=== PATIENT | female | born 1980 | race Caucasian/White ===

== ENCOUNTER 2020-05-15 12:42 | Emergency (ER) | payer MEDICARE, MEDICAID, SELFPAY ==
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
[2020-05-15 14:36] VITALS: BP 137/89; PULSE 93; RESP 18; TEMP 36.4; O2SAT 94; BMI 40.3
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
== END 2020-05-15 16:50 | disposition home or self-care (01) ==
PROVIDERS: Emergency Provider Emergency Medicine; PCP Nurse Practitioner Family
DX: S39.012A Strain of muscle, fascia and tendon of lower back, initial encounter (principal); S63.501A Unspecified sprain of right wrist, initial encounter; S66.911A Strain of unspecified muscle, fascia and tendon at wrist and hand level, right hand, initial encounter; V73.6XXA Passenger on bus injured in collision with car, pick-up truck or van in traffic accident, initial encounter; Y93.89 Activity, other specified; Y92.414 Local residential or business street as the place of occurrence of the external cause; Y99.9 Unspecified external cause status
CPT/HCPCS: 72100; 73110; 73130; 99283

== ENCOUNTER 2020-11-13 21:13 | Emergency (ER) | payer MEDICARE, MEDICAID, SELFPAY ==
--- NOTE | ~2020-11-13 | CT_ITS ---
EXAMINATION: CT HEAD WITHOUT CONTRAST CT CERVICAL SPINE WITHOUT CONTRAST CLINICAL INFORMATION: Fall. COMPARISON: None. TECHNIQUE: Imaging was performed from the skull base to vertex without intravenous administration of contrast. In addition, helical noncontrast CT imaging was acquired through the cervical spine and source images were reviewed along with axial reconstructions and sagittal and coronal MPRs. [This CT examination was performed using dose optimization techniques as appropriate, variously including the following: *Automated exposure control *Adjustment of mA and/or kV according to patient size (this includes techniques or standardized protocols for targeted exams where dose is matched to indication/reason for exam; i.e. extremities or head) *Use of iterative reconstruction technique] DLP: 1763 mGy-cm FINDINGS: HEAD: Calcified extra-axial lesion in the left frontal region consistent with a meningioma measuring 1.3 cm. No intracranial mass, hemorrhage, or midline shift is visualized. The ventricles and sulci are proportional. No extra-axial collections are identified. The paranasal sinuses and mastoid air cells are well aerated. CERVICAL SPINE: There is no evidence of acute cervical spine fracture. Vertebral bodies remain normal in height. Cervical vertebrae have normal alignment. Cervical disc heights are normal. The facet joints are normal. No pre- or paravertebral soft tissue abnormality is identified. Limited assessment of the lung apices is unremarkable. CT/CT cervical spine wo con IMPRESSION: 1. No acute intracranial pathology. 2. No CT evidence of acute cervical spine fracture or traumatic subluxation
--- NOTE | ~2020-11-13 | CT_ITS ---
EXAMINATION: CT HEAD WITHOUT CONTRAST CT CERVICAL SPINE WITHOUT CONTRAST CLINICAL INFORMATION: Fall. COMPARISON: None. TECHNIQUE: Imaging was performed from the skull base to vertex without intravenous administration of contrast. In addition, helical noncontrast CT imaging was acquired through the cervical spine and source images were reviewed along with axial reconstructions and sagittal and coronal MPRs. [This CT examination was performed using dose optimization techniques as appropriate, variously including the following: *Automated exposure control *Adjustment of mA and/or kV according to patient size (this includes techniques or standardized protocols for targeted exams where dose is matched to indication/reason for exam; i.e. extremities or head) *Use of iterative reconstruction technique] DLP: 1763 mGy-cm FINDINGS: HEAD: Calcified extra-axial lesion in the left frontal region consistent with a meningioma measuring 1.3 cm. No intracranial mass, hemorrhage, or midline shift is visualized. The ventricles and sulci are proportional. No extra-axial collections are identified. The paranasal sinuses and mastoid air cells are well aerated. CERVICAL SPINE: There is no evidence of acute cervical spine fracture. Vertebral bodies remain normal in height. Cervical vertebrae have normal alignment. Cervical disc heights are normal. The facet joints are normal. No pre- or paravertebral soft tissue abnormality is identified. Limited assessment of the lung apices is unremarkable. CT/CT head/brain wo con IMPRESSION: 1. No acute intracranial pathology. 2. No CT evidence of acute cervical spine fracture or traumatic subluxation
[2020-11-13 21:23] VITALS: BP 116/62; PULSE 103; RESP 16; TEMP 36.6; O2SAT 94; BMI 41.9
--- NOTE | 2020-11-13 21:52 | ED_ITS ---
HPI - Fall General Chief Complaint: Fall Stated Complaint: ETOH Time Seen by Provider: 11/13/20 21:34 Source: patient Mode of arrival: EMS Limitations: no limitations History of Present Illness HPI Narrative: Patient intoxicated fell after drinking hitting her forehead to the ground came with superficial abrasion to the forehead no seizures no loss of consciousness no other injuries not on any blood thinner Related Data Previous Rx's Medication Instructions Recorded cyclobenzaprine 10 mg tablet 10 mg PO TID PRN #10 tab 05/15/20 lidocaine 5 % topical patch 1 patch TOPICAL DAILY #15 ea 05/15/20 (Lidoderm) naproxen 500 mg tablet 500 mg PO BID PRN #10 tab 05/15/20 oxycodone-acetaminophen 5 mg-325 1 tab PO Q6H PRN #10 tab 05/15/20 mg tablet (Percocet) Allergies Allergy/AdvReac Type Severity Reaction Status Date / Time amoxicillin Allergy Unknown Unknown Verified 05/15/20 14:36 penicillin V Allergy Unknown Hives Verified 05/15/20 14:36 Penicillins [PENICILLINS] Allergy Unknown UNKNOWN Verified 05/15/20 14:36 mold Allergy Unknown Hives Uncoded 05/15/20 14:36 Review of Systems Review of Systems: Yes all other systems are reviewed and are negative [facility] Past Medical History Medical History HTN (hypertension) Social History Social History Advance Directives: No Advance Directives Information Provided: Yes Patient : No Physical Exam Vital Signs: Vital Signs: Last Vital Signs Temp 98.4 F 11/14/20 02:19 Pulse 91 11/14/20 02:19 Resp 16 11/14/20 02:19 BP 130/80 11/14/20 02:19 Pulse Ox 94 11/14/20 02:19 Body Mass Index 41.9 Const: General: comfortable and no acute distress Orientation/consciousness: patient oriented x3 HENMT: Head: Yes normocephalic Head images: 1. Superficial abrasion with slight swelling dried nasal blood 2. Superficial abrasion Ears: hearing grossly normal bilaterally and TM's normal bilaterally Face and sinus: Yes sinuses nontender Mouth: Normal oral and palatal mucosa present Teeth and gingiva: dentition normal Eyes: General: appearance normal, both eyes and all related structures Neck: Neck: Yes full ROM, Yes trachea midline and No tender Chest: Chest palpation & inspection: normal inspection of the chest and normal palpation of entire chest wall Resp: Effort & Inspection: normal respiratory effort Auscultation: clear to auscultation bilaterally Cardio: Palpation: normal PMI Rate: regular rate Rhythm: regular rhythm Heart sounds: S1 normal heart sound present and S2 normal heart sound present GI: Inspection: Yes normal to inspection Palpation (GI): Soft to palpation and nontender Auscultation: normal bowel sounds Back/Spine/Pelvis: Cervical Spine: normal cervical lordosis and cervical ROM normal Thoracic/Lumbar Spine: No thoracic spinal tenderness and No lumbar spinal tenderness Neuro: General: patient oriented x3, no focal motor deficits and CN's II-XI intact bilaterally MDM - Fall MDM Narrative Medical decision making narrative: Patient status post mechanical fall intoxicated head CT and C-spine CT is negative a superficial abrasion to the f vero will discharge patient home with sober ride if available Discharge Plan Discharge Clinical Impression: Alcohol abuse Head injury Qualifiers: Encounter type: initial encounter Qualified Code(s): S09.90XA - Unspecified injury of head, initial encounter Patient Disposition: Home, Self-Care Instructions: Alcohol Intoxication (ED), Fall Prevention (ED) Additional Instructions: Stop drinking alcohol Local care of abrasions as advised Prescriptions: No Action cyclobenzaprine 10 mg tablet 10 mg PO TID PRN (Reason: muscle spasm) Qty: 10 RF: 0 oxycodone-acetaminophen [Percocet] 5-325 mg tablet 1 tab PO Q6H PRN (Reason: pain) Qty: 10 RF: 0 lidocaine [Lidoderm] 5 % adhesive patch,medicated 1 patch topical DAILY Qty: 15 RF: 0 naproxen 500 mg tablet 500 mg PO BID PRN (Reason: pain) Qty: 10 RF: 0 Interventions: ED Discharge Assessment Last Done: 11/14/20 02:20 Discharge Date/Time: 11/14/20 02:21
[2020-11-14 02:19] VITALS: BP 130/80; PULSE 91; RESP 16; TEMP 36.9; O2SAT 94
== END 2020-11-14 02:21 | disposition home or self-care (01) ==
PROVIDERS: Emergency Provider Internal Medicine; PCP Nurse Practitioner Family
DX: S00.81XA Abrasion of other part of head, initial encounter (principal); G44.309 Post-traumatic headache, unspecified, not intractable; M54.2 Cervicalgia; F10.129 Alcohol abuse with intoxication, unspecified; W01.0XXA Fall on same level from slipping, tripping and stumbling without subsequent striking against object, initial encounter; Y93.9 Activity, unspecified; Y92.89 Other specified places as the place of occurrence of the external cause; Y99.9 Unspecified external cause status; Z79.899 Other long term (current) drug therapy
CPT/HCPCS: 70450; 72125; 99284

== ENCOUNTER 2021-09-18 12:54 | Emergency (ER) | payer MEDICARE, MEDICAID, SELFPAY ==
[2021-09-18 13:28] VITALS: BP 159/98; PULSE 83; RESP 18; TEMP 37.1; O2SAT 98; BMI 33.9
--- NOTE | 2021-09-18 15:26 | ED.BACK ---
HPI - Back Pain/Injury General Chief Complaint: Back Pain/Injury Stated Complaint: back thrown out Time Seen by Provider: 09/18/21 15:11 Source: patient Mode of arrival: ambulatory History of Present Illness HPI Narrative: 40-year-old female with a past medical history of hypertension, chronic back pain, presenting to the ED complaining of acute on chronic left-sided low back pain s/p getting up from sitting last night. Admits to taking Motrin without relief. Denies direct injury, trauma, fall or heavy lifting. Denies radiation of pain, numbness, tingling, weakness, urinary incontinence/retention, fever MD elicited complaint: back pain Related Data Previous Rx's Medication Instructions Recorded cyclobenzaprine 10 mg tablet 10 mg PO TID PRN muscle spasm #10 05/15/20 tabs lidocaine 5 % topical patch 1 patch topical DAILY pain #15 ea 05/15/20 (Lidoderm) naproxen 500 mg tablet 500 mg PO BID PRN pain #10 tabs 05/15/20 oxycodone-acetaminophen 5 mg-325 1 tab PO Q6H PRN pain #10 tabs 05/15/20 mg tablet (Percocet) acetaminophen 500 mg tablet 500 mg PO Q6H PRN fever or pain 09/18/21 (Tylenol Extra Strength) #14 tabs cyclobenzaprine 5 mg tablet 5 mg PO Q8H PRN pain (scale score 09/18/21 7-10) 5 days #14 tabs lidocaine 5 % topical patch 1 patch topical DAILY PRN pain #30 09/18/21 (Lidoderm) ea naproxen 500 mg tablet 500 mg PO BID PRN pain 10 days #20 09/18/21 tabs Allergies Allergy/AdvReac Type Severity Reaction Status Date / Time amoxicillin Allergy Unknown Unknown Verified 05/15/20 14:36 penicillin V Allergy Unknown Hives Verified 05/15/20 14:36 Penicillins [PENICILLINS] Allergy Unknown UNKNOWN Verified 05/15/20 14:36 mold Allergy Unknown Hives Uncoded 05/15/20 14:36 Review of Systems Review of Systems: Constitutional: No Fever, No Chills ENT/Mouth: No Ear Pain, No Nasal Congestion, No sore throat, No Rhinorrhea, No Swallowing Difficulty Cardiovascular: No Chest Pain, No SOB Respiratory: No Cough, No Wheezing Gastrointestinal: No Nausea, No Vomiting, No Diarrhea, No Constipation, No Abdominal pain Genitourinary: No Dysuria, No Urinary Frequency, No Hematuria, No Urinary Incontinence/retention, No Flank Pain Musculoskeletal: + joint pain, No Myalgias, No Joint Swelling Skin: No Skin Lesions, No rash Neuro: No Weakness, No Numbness, No Paresthesias Yes all other systems are reviewed and are negative [facility] Past Medical History Attestation statement: The following information was validated with the patient. Medical History HTN (hypertension) Social History Social History Advance Directives: No Advance Directives Information Provided: No Physical Exam Vital Signs: Vital Signs: Last Vital Signs Temp 98.8 F 09/18/21 13:28 Pulse 83 09/18/21 13:28 Resp 18 09/18/21 13:28 BP 159/98 H 09/18/21 13:28 Pulse Ox 98 09/18/21 13:28 O2 Del Method 09/18/21 13:28 BMI result Body Mass Index 33.9 Const: General: cooperative, healthy appearing and no acute distress Orientation/consciousness: patient oriented x3 Limitations: no limitations HEENT: Head: Yes normal to inspection and Yes atraumatic Ears: hearing grossly normal bilaterally General nose exam: Normal external nose present Face and sinus: Yes normal facial exam Eyes: General: appearance normal, both eyes and all related structures EOM: EOMs intact bilaterally Neck: Neck: Yes normal visual inspection and Yes no meningeal signs Resp: Effort & Inspection: normal respiratory effort and no respiratory distress Cardio: Rate: regular rate Heart sounds: S1 normal heart sound present and S2 normal heart sound present : General: Yes no CVA tenderness Back/Spine/Pelvis: Other: No midline thoracic/lumbar spinous tenderness/step-off or deformity. +left sided lower lumbar MSK ttp Back: no CVA tenderness Skin: Rashes: no rashes Wounds: no wounds Neuro: Other: Strength intact throughout. No saddle anesthesia. Sensation intact to light touch. Neurovascular intact distally General: patient oriented x3, tone normal and no meningeal signs Gait exam (Neuro): Normal gait present Extrem: General: Yes normal to inspection MDM - Back Pain/Injury MDM Narrative Medical decision making narrative: 40-year-old female with a past medical history of hypertension, chronic back pain, presenting to the ED complaining of acute on chronic left-sided low back pain s/p getting up from sitting last night. On exam vital signs stable, NAD, no midline spinous tenderness throughout, no red flag symptoms. Ambulating with steady gait. No saddle anesthesia. Concern for MSK pain/strain vs muscle spasming. Low concern for cauda equina, cord compression, epidural abscess or renal stone/pyelo Plan: Pain management Differential Diagnosis Differential diagnosis: Likely lumbar radiculopathy, strain of lumbar region and thoracic back pain Medical Records Attestation: I reviewed the patient's medical records. Lab Data Attestation: I reviewed the patient's lab results. Discharge Plan Discharge Clinical Impression: Strain of lumbar region Patient Disposition: Home, Self-Care Instructions: Acute Low Back Pain (ED) Additional Instructions: Your pain is likely musculoskeletal Flexeril is a muscle relaxer, take at night as it makes you drowsy, do not drive, drink alcohol, or operate machinery while taking it Naproxen as an anti-inflammatory / pain medication, take with food Lidoderm patches are numbing patches, apply to painful area In addition take Tylenol at home If symptoms persist or worsen, pain becomes unbearable, you developed urinary retention or incontinence, or weakness return to the ED Prescriptions: New acetaminophen [Tylenol Extra Strength] 500 mg tablet 500 mg PO Q6H PRN (Reason: fever or pain) Qty: 14 0RF lidocaine [Lidoderm] 5 % adhesive patch,medicated 1 patch topical DAILY MDD remove after 12 hours PRN (Reason: pain) Qty: 30 0RF Rx Instructions: leave on most painful area for up to 12 hrs naproxen 500 mg tablet 500 mg PO BID PRN (Reason: pain) 10 Days Qty: 20 0RF cyclobenzaprine 5 mg tablet 5 mg PO Q8H PRN (Reason: pain (scale score 7-10)) 5 Days Qty: 14 0RF No Action cyclobenzaprine 10 mg tablet 10 mg PO TID PRN (Reason: muscle spasm) Qty: 10 0RF oxycodone-acetaminophen [Percocet] 5-325 mg tablet 1 tab PO Q6H PRN (Reason: pain) Qty: 10 0RF lidocaine [Lidoderm] 5 % adhesive patch,medicated 1 patch topical DAILY Qty: 15 0RF Rx Instructions: leave on most painful area for up to 12 hrs. May be substituted naproxen 500 mg tablet 500 mg PO BID PRN (Reason: pain) Qty: 10 0RF Referrals: Judie Matos NP [Primary Care Provider] -
[2021-09-18] MEDS: Cyclobenzaprine HCl 10 MG TABLET PO (15:44)
[2021-09-18] MEDS: Lidocaine 4 % Patch ADH..PATCH 1 PATCH TRANSDERMA (15:44)
[2021-09-18] MEDS: Ketorolac Tromethamine 30 MG/ML VIAL IM (15:45)
== END 2021-09-18 15:57 | disposition home or self-care (01) ==
PROVIDERS: Emergency Provider Emergency Medicine; PCP Nurse Practitioner Family
DX: S39.012A Strain of muscle, fascia and tendon of lower back, initial encounter (principal); X58.XXXA Exposure to other specified factors, initial encounter; Y93.9 Activity, unspecified; Y92.9 Unspecified place or not applicable; Y99.9 Unspecified external cause status
CPT/HCPCS: 96372; 99283; 99284; J1885

== ENCOUNTER 2024-01-24 05:00 | Emergency (ER) | payer MEDICARE, MEDICAID, SELFPAY ==
--- NOTE | ~2024-01-24 | XR_ITS ---
EXAMINATION: XR CHEST CLINICAL INFORMATION: Chest pain. COMPARISON: None available. TECHNIQUE: Frontal view of the chest was obtained. FINDINGS: No significant abnormality is noted involving the heart, lungs, mediastinum, bony thorax or soft tissues. XR/XR chest 1V IMPRESSION: Unremarkable examination. Electronically signed by: Suleman Suarez MD 01/24/2024 05:42 AM EDT RP
[2024-01-24 05:11] VITALS: BP 148/85; PULSE 74; RESP 16; TEMP 36.7; O2SAT 96; BMI 26.8
[2024-01-24 05:32] VITALS: O2SAT 97
--- NOTE | 2024-01-24 05:35 | PC.NURSE ---
Pt reporting she has extensive lung history issues as a child. Pt is currently speaking in full sentences. RA O2 97%. Pt given urine cup at this time, call de anda within reach.
--- NOTE | 2024-01-24 05:41 | MHC.EDTECH ---
This tech assumed care of patient at this time,rounded and introduced self to patient,labs,urine,and sars/flu/rsv obtained and sent to lab.call neetu rocha reach
[2024-01-24 06:02] LABS: MANUAL DIFF FLAG NO
[2024-01-24 06:03] LABS: Basophils Absolute Auto 0.1 X10*3/uL (0.0-0.2); Basophils Percent Auto 0.6 % (0-2); Eosinophils Absolute Auto 0.2 X10*3/uL (0.0-0.4); Eosinophils Percent Auto 1.7 % (0-4); Hematocrit 41.3 % (37.0-47.0); Hemoglobin 13.5 g/dl (12.0-16.0); Imm Gran Abs Auto 0.04 X10*3/uL (0.00-0.03); Imm Gran Pct Auto 0.4 % (0.0-0.4); Lymphocytes Absolute Auto 2.6 X10*3/uL (1.2-4.9); Lymphocytes Percent Auto 25.7 % (20-40); Mean Corpuscular HGB Conc 32.7 g/dl (31.0-35.0); Mean Corpuscular Hemoglobin 29.7 pg (27.0-33.0); Mean Corpuscular Volume 90.8 fL (80.0-98.0); Mean Platelet Volume 9.5 fL (9.4-12.3); Monocytes Absolute Auto 0.8 X10*3/uL (0.1-1.2); Monocytes Percent Auto 7.6 % (2-11); Neutrophils Absolute Auto 6.5 x10*3/uL (2.0-8.3); Platelet Count 195 X10*3/uL (160-400); Red Blood Count 4.55 X10*6/uL (4.20-5.50); Red Cell Distribution Width 14.4 % (11.0-16.0); White Blood Count 10.1 X10*3/uL (4.8-10.8)
[2024-01-24 06:06] LABS: Appearance Urine Clear; Color Urine Yellow; Glucose Urine UA Negative (Negative); Leukocyte Esterase Urine Moderate (2+) (Negative); Nitrite Urine Negative (Negative); Specific Gravity - Urine 1.015 (1.005-1.025); UMIC TRIGGER UACC YES; Urine Blood Negative (Negative); Urine Ketones Negative (Negative); Urine Protein Negative (Neg-Trace)
[2024-01-24 06:12] LABS: Bacteria Urine 1+ (None Seen); Hyaline Casts Urine 0-2 /LPF (0-2); RBC Urine 0-2 /HPF (0-2); UACC Culture Trigger YES
[2024-01-24 06:14] LABS: Anion Gap 12 (12-20); Blood Urea Nitrogen 15 mg/dL (9-16); Calcium 8.4 mg/dL (8.4-10.2); Carbon Dioxide 24 mmol/L (22-29); Chloride 107 mmol/L (96-108); Creatinine Clr Calc Pharmacy 109.9; Estimated Glomerular Filt Rate > 60; Glucose Random 85 mg/dL (60-115); Potassium 3.7 mmol/L (3.3-5.1); Sodium 139 mmol/L (135-145)
[2024-01-24 06:40] LABS: Influenza A PCR NEGATIVE (Negative); Influenza B PCR NEGATIVE (Negative); Resp Syncy Virus RNA Qual PCR NEGATIVE (Negative); SARS COV2 PCR INHOUSE NEGATIVE (Negative)
--- NOTE | 2024-01-24 07:00 | ED.URI ---
HPI - URI/Sore Throat General Chief Complaint: Upper Respiratory Symptoms Stated Complaint: Lung pain Time Seen by Provider: 01/24/24 05:40 Source: patient Mode of arrival: ambulatory Limitations: no limitations History of Present Illness ED Provider: Dr. Becker HPI Narrative: Patient with a week of chest pain and cough, he is still smoking he has a history of COPD. He denies fever. MD elicited complaint: cough Related Data Previous Rx's ?Medication ?Instructions ?Recorded cyclobenzaprine 10 mg tablet 10 mg PO TID PRN muscle spasm #10 05/15/20 tabs lidocaine 5 % topical patch 1 patch topical DAILY pain #15 ea 05/15/20 (Lidoderm) naproxen 500 mg tablet 500 mg PO BID PRN pain #10 tabs 05/15/20 oxycodone-acetaminophen 5 mg-325 1 tab PO Q6H PRN pain #10 tabs 05/15/20 mg tablet (Percocet) acetaminophen 500 mg tablet 500 mg PO Q6H PRN fever or pain 09/18/21 (Tylenol Extra Strength) #14 tabs cyclobenzaprine 5 mg tablet 5 mg PO Q8H PRN pain (scale score 09/18/21 7-10) 5 days #14 tabs lidocaine 5 % topical patch 1 patch topical DAILY PRN pain #30 09/18/21 (Lidoderm) ea naproxen 500 mg tablet 500 mg PO BID PRN pain 10 days #20 09/18/21 tabs oozekxwbvysmg-QN-ifzldnydyem 5 10 ml PO Q4H PRN cough #473 mL 01/24/24 mg-10 mg-100 mg/5 mL oral liquid Allergies Allergy/AdvReac Type Severity Reaction Status Date / Time amoxicillin Allergy Unknown Unknown Verified 01/24/24 05:14 penicillin V Allergy Unknown Hives Verified 01/24/24 05:14 Penicillins [PENICILLINS] Allergy Unknown UNKNOWN Verified 01/24/24 05:14 mold Allergy Unknown Hives Uncoded 01/24/24 05:14 Review of Systems Review of Systems: Yes all other systems are reviewed and are negative Neurologic: Denies Sensory deficit (Neuro) [facility] Past Medical History Medical History HTN (hypertension) Social History Social History Alcohol intake: unknown Smoked in Last 30 Days: Yes Use of substances other than those prescribed or required for medical reasons: Yes Substance Use Type: Marijuana Substance Use Frequency: Chronic Longstanding Advance Directives: No Advance Directives Information Provided: No Do you have a plan to hurt others: No Plan Physical Exam Vital Signs: Vital Signs: Last Vital Signs Temp 98.1 F 01/24/24 05:11 Pulse 74 01/24/24 05:11 Resp 16 01/24/24 05:11 BP 148/85 H 01/24/24 05:11 Pulse Ox 97 01/24/24 05:32 O2 Del Method Room Air 01/24/24 05:32 BMI result Body Mass Index 26.8 Const: General: healthy appearing Nutritional Appearance: average body habitus Orientation/consciousness: oriented to person and patient oriented x3 Limitations: no limitations HEENT: Head: Yes normal to inspection Ears: external ears normal General nose exam: Normal external nose present Mouth: Normal oral and palatal mucosa present and oropharynx normal Throat: Yes posterior oropharynx normal Eyes: General: appearance normal, both eyes and all related structures Neck: Other: supple Neck: Yes normal visual inspection Chest: Chest palpation & inspection: normal inspection of the chest Resp: Auscultation: clear to auscultation bilaterally Cardio: Jugular venous distension: no JVD Rate: regular rate Rhythm: regular rhythm Heart sounds: S1 normal heart sound present and S2 normal heart sound present GI: Inspection: Yes normal to inspection Palpation (GI): Soft to palpation, nontender and No hepatosplenomegaly present Auscultation: normal bowel sounds : General: Yes no CVA tenderness Back/Spine/Pelvis: Back: no CVA tenderness Skin: General skin exam: no rashes or lesions noted Neuro: General: oriented to person and patient oriented x3 Cranial nerves: Yes CN's II-XII intact bilaterally Motor exam (neuro): 5/5 motor strength present throughout Sensory Exam: No Sensory deficit (Neuro) Extrem: General: Yes normal to inspection Psych: Appearance: grossly normal Course Reevaluation(s) Reevaluation #1: CXR shows chronic changes, labs normal will treat with robitussion Time: 07:12 Medical Decision Making Differential Diagnosis Differential Diagnoses: The differential diagnosis associated with the presentation includes (Pneumonia, copd exacerbation, flu, covid, rsv, URI, bronchitis) Admission/Observation Consideration of admission/observation: Escalation of care including admission/observation considered (upon arrival admission was considered) Lab Data 01/24/24 05:52 01/24/24 05:52 Labs: Lab Results 01/24/24 Range/Units 05:52 WBC 10.1 (4.8-10.8) X10*3/uL RBC 4.55 (4.20-5.50) X10*6/uL Hgb 13.5 (12.0-16.0) g/dl Hct 41.3 (37.0-47.0) % MCV 90.8 (80.0-98.0) fL MCH 29.7 (27.0-33.0) pg MCHC 32.7 (31.0-35.0) g/dl RDW 14.4 (11.0-16.0) % Plt Count 195 (160-400) X10*3/uL MPV 9.5 (9.4-12.3) fL Immature Gran % (Auto) 0.4 (0.0-0.4) % Neut % (Auto) 64.0 (45-73) % Lymph % (Auto) 25.7 (20-40) % [place] % (Auto) 7.6 (2-11) % Eos % (Auto) 1.7 (0-4) % Baso % (Auto) 0.6 (0-2) % Lymph # (Auto) 2.6 (1.2-4.9) X10*3/uL [place] # (Auto) 0.8 (0.1-1.2) X10*3/uL Eos # (Auto) 0.2 (0.0-0.4) X10*3/uL Baso # (Auto) 0.1 (0.0-0.2) X10*3/uL Abs Immat Gran (auto) 0.04 H (0.00-0.03) X10*3/uL Absolute Neuts (auto) 6.5 (2.0-8.3) x10*3/uL Absolute Nucleated RBC 0.000 (0.0-0.012) X10*3/uL Nucleated RBC % (auto) 0.0 (0.0-0.2) /100WBC Sodium 139 (135-145) mmol/L Potassium 3.7 (3.3-5.1) mmol/L Chloride 107 (96-108) mmol/L Carbon Dioxide 24 (22-29) mmol/L Anion Gap 12 (12-20) BUN 15 (9-16) mg/dL Creatinine 0.67 (0.5-1.4) mg/dL Estim Creat Clear Calc 109.9 Estimated GFR > 60 Random Glucose 85 (60-115) mg/dL Calcium 8.4 (8.4-10.2) mg/dL Urine Color Yellow Urine Appearance Clear Urine pH 6.0 (5.0-9.0) Ur Specific [place] 1.015 (1.005-1.025) Urine Protein Negative (Neg-Trace) mg/dL Urine Glucose (UA) Negative (Negative) mg/dL Urine Ketones Negative (Negative) mg/dL Urine Blood Negative (Negative) Urine Nitrite Negative (Negative) Ur Leukocyte Esterase Moderate (2+) H (Negative) Urine RBC 0-2 (0-2) /HPF Urine WBC 6-10 H (0-5) /HPF Ur Squamous Epith Cells 11-20 (0-2) /HPF Urine Bacteria 1+ (None Seen) Hyaline Casts 0-2 (0-2) /LPF Influenza Type A (PCR) NEGATIVE (Negative) Influenza Type B (PCR) NEGATIVE (Negative) RSV RNA Qual (PCR) NEGATIVE (Negative) SARS-CoV-2 RNA (RT-PCR) NEGATIVE (Negative) Independent Interpretation I performed an independent interpretation of an: Plain X-Ray (chronic changes no infiltrate) Prescription Management I considered prescription management with: Antibiotic (no infiltrate on xray will not place on abx) Chronic Conditions Patient?s care impacted by: Other (COPD) Discharge Plan Discharge Clinical Impression: Upper respiratory infection, Viral infection Patient Disposition: Home, Self-Care Instructions: Upper Respiratory Infection (ED), Viral Syndrome (ED) Prescriptions: New ycgiwwcorzfwl-CS-lolzqsbixkl 5-10-100 mg/5 mL liquid 10 ml PO Q4H PRN (Reason: cough) Qty: 473 0RF No Action cyclobenzaprine 10 mg tablet 10 mg PO TID PRN (Reason: muscle spasm) Qty: 10 0RF oxycodone-acetaminophen [Percocet] 5-325 mg tablet 1 tab PO Q6H PRN (Reason: pain) Qty: 10 0RF lidocaine [Lidoderm] 5 % adhesive patch,medicated 1 patch topical DAILY Qty: 15 0RF Rx Instructions: leave on most painful area for up to 12 hrs. May be substituted naproxen 500 mg tablet 500 mg PO BID PRN (Reason: pain) Qty: 10 0RF acetaminophen [Tylenol Extra Strength] 500 mg tablet 500 mg PO Q6H PRN (Reason: fever or pain) Qty: 14 0RF lidocaine [Lidoderm] 5 % adhesive patch,medicated 1 patch topical DAILY MDD remove after 12 hours PRN (Reason: pain) Qty: 30 0RF Rx Instructions: leave on most painful area for up to 12 hrs naproxen 500 mg tablet 500 mg PO BID PRN (Reason: pain) 10 Days Qty: 20 0RF cyclobenzaprine 5 mg tablet 5 mg PO Q8H PRN (Reason: pain (scale score 7-10)) 5 Days Qty: 14 0RF Referrals: Judie Matos INFORMATION SYSTEMS CONSULTANT [Primary Care Provider] - 5 days Print Language: Yakut
[2024-01-24 08:04] VITALS: BP 145/63; PULSE 88; RESP 20; TEMP 36.6; O2SAT 97
== END 2024-01-24 08:05 | disposition home or self-care (01) ==
PROVIDERS: Emergency Provider Emergency Medicine; PCP Nurse Practitioner Family
DX: J06.9 Acute upper respiratory infection, unspecified (principal); R05.9 Cough, unspecified; Z03.818 Encounter for observation for suspected exposure to other biological agents ruled out; I10 Essential (primary) hypertension; J44.9 Chronic obstructive pulmonary disease, unspecified; Z79.899 Other long term (current) drug therapy
CPT/HCPCS: 0241U; 36415; 71045; 80048; 81001; 85025; 87086; 87147; 99283; 99284

== ENCOUNTER 2024-05-11 14:19 | Emergency (ER) | payer MEDICARE, MEDICAID, SELFPAY ==
--- NOTE | ~2024-05-11 | XR_ITS ---
EXAMINATION: XR SHOULDER, RIGHT CLINICAL INFORMATION: fall ? dislocation COMPARISON: None available. TECHNIQUE: AP external rotation, Grashey, scapular Y, and axillary views of the right shoulder. FINDINGS: There is minimally displaced right humeral neck. No dislocation seen. Visualized scapula, acromion and the clavicle appears normal. Mild soft tissue swelling. XR/XR shoulder RT min 2V IMPRESSION: Fracture right humeral neck with minimal displacement. There is no shoulder dislocation. Electronically signed by: Can Turner MD 05/11/2024 04:44 PM EST RP
[2024-05-11 16:07] VITALS: BP 149/88; PULSE 94; RESP 20; TEMP 37.1; O2SAT 99; BMI 26.2
--- NOTE | 2024-05-11 16:40 | ED.EXTPRO ---
HPI - Extremity Problem General Chief complaint: Extremity Injury, Upper Stated complaint: Fall on ice - R shoulder injury Time Seen by Provider: 05/11/24 16:10 History of Present Illness ED Provider: Dr. Foster HPI Narrative: 43 y/o F patient; PMH HTN; presents as a slip and fall on ice immediately prior to arrival. The patient states she slipped and landed directly on her right shoulder. She did not hit her head or lose consciousness. She is right hand dominant. She primarily complains of right upper extremity pain. She has been ambulatory since the event. Related Data Previous Rx's ?Medication ?Instructions ?Recorded cyclobenzaprine 10 mg tablet 10 mg PO TID PRN muscle spasm #10 05/15/20 tabs lidocaine 5 % topical patch 1 patch topical DAILY pain #15 ea 05/15/20 (Lidoderm) naproxen 500 mg tablet 500 mg PO BID PRN pain #10 tabs 05/15/20 oxycodone-acetaminophen 5 mg-325 1 tab PO Q6H PRN pain #10 tabs 05/15/20 mg tablet (Percocet) acetaminophen 500 mg tablet 500 mg PO Q6H PRN fever or pain 09/18/21 (Tylenol Extra Strength) #14 tabs cyclobenzaprine 5 mg tablet 5 mg PO Q8H PRN pain (scale score 09/18/21 7-10) 5 days #14 tabs lidocaine 5 % topical patch 1 patch topical DAILY PRN pain #30 09/18/21 (Lidoderm) ea naproxen 500 mg tablet 500 mg PO BID PRN pain 10 days #20 09/18/21 tabs xgbbpkssxlgjb-TM-furfdybrucc 5 10 ml PO Q4H PRN cough #473 mL 01/24/24 mg-10 mg-100 mg/5 mL oral liquid acetaminophen 500 mg tablet 1,000 mg (2 x 500 mg) PO Q6H PRN 05/11/24 pain 7 days #30 tabs ibuprofen 400 mg tablet 400 mg PO Q6H PRN pain 7 days #30 05/11/24 tabs oxycodone 5 mg capsule 5 mg PO Q6H PRN pain 7 days #12 05/11/24 caps Allergies Allergy/AdvReac Type Severity Reaction Status Date / Time amoxicillin Allergy Unknown Unknown Verified 05/11/24 16:08 penicillin V Allergy Unknown Hives Verified 05/11/24 16:08 Penicillins [PENICILLINS] Allergy Unknown UNKNOWN Verified 05/11/24 16:08 mold Allergy Unknown Hives Uncoded 01/24/24 05:14 Review of Systems Review of Systems: Yes all other systems are reviewed and are negative [facility] Past Medical History Attestation statement: The following information was validated with the patient. Source: old records reviewed Medical History HTN (hypertension) Social History Social History Alcohol intake: unknown Smoked in Last 30 Days: Yes Substance Use Type: Marijuana Substance Use Frequency: Daily Last Used Substance: Days (ago) Advance Directives: No Advance Directives Information Provided: Yes Physical Exam Vital Signs: Vital Signs: Last Vital Signs Temp 98.8 F 05/11/24 16:07 Pulse 94 05/11/24 16:07 Resp 20 05/11/24 16:07 BP 149/88 H 05/11/24 16:07 Pulse Ox 99 05/11/24 16:07 O2 Del Method Room Air 05/11/24 16:07 BMI result Body Mass Index 26.2 Patient is afebrile and hemodynamically stable Const: General: cooperative HEENT: Head: Yes normal to inspection and Yes atraumatic Eyes: General: appearance normal, both eyes and all related structures Pupils: Equal, round and reactive pupils present EOM: EOMs intact bilaterally Neck: Neck: Yes normal visual inspection, Yes full ROM, Yes supple and No tender Chest: Chest palpation & inspection: normal inspection of the chest and normal palpation of entire chest wall Resp: Effort & Inspection: normal respiratory effort, able to speak in complete sentences, no cough and no respiratory distress Auscultation: clear to auscultation bilaterally Cardio: Rate: regular rate Rhythm: regular rhythm Peripheral pulses: Peripheral pulses 2+ throughout GI: Inspection: No Abdominal wall edema and No distended Palpation (GI): Soft to palpation, not firm, nontender, no guarding and not rigid Auscultation: normal bowel sounds Back/Spine/Pelvis: Back: No back tenderness Neuro: Cranial nerves: Yes Equal, round and reactive pupils present Extrem: Other: Tenderness to RUE proximal aspect of humerus. No tenderness to elbow/wrist/hand. NVI. No skin abnormalities. Course Course Course Narrative: Patient is afebrile and hemodynamically stable. XR Right Shoulder obtained. Noted to have proximal humerus fx. Placed in sling and swathe for immobilization. Provided pain control with Toradol, Tylenol, and Oxycodone. Orthopedics is aware of patient and in agreement with this plan (STEPHANIE Alvarado). Plan: Discharge to home with PCP and Orthopedic follow up Return precautions given Medications Administered Discontinued Medications Generic Name Dose Route Start Last Admin Trade Name Jorge PRN Reason Stop Dose Admin Acetaminophen 975 mg 05/11/24 16:38 05/11/24 16:45 Acetaminophen 325 Mg Tablet PO 05/11/24 16:39 975 mg ONCE ONE Administration Ketorolac Tromethamine 30 mg 05/11/24 16:38 05/11/24 16:45 Ketorolac Tromethamine 30 Mg/Ml Vial IM 05/11/24 16:39 30 mg ONCE ONE Administration Oxycodone HCl 5 mg 05/11/24 16:38 05/11/24 16:45 Oxycodone Hcl Immed Release 5 Mg Tablet PO 05/11/24 16:39 5 mg ONCE ONE Administration Medical Decision Making Radiology Impression Discussion of test interpretation with radiology: I have reviewed the radiologist's reading. Radiologist Impression: EXAMINATION: XR SHOULDER, RIGHT CLINICAL INFORMATION: fall ? dislocation COMPARISON: None available. TECHNIQUE: AP external rotation, Grashey, scapular Y, and axillary views of the right shoulder. FINDINGS: There is minimally displaced right humeral neck. No dislocation seen. Visualized scapula, acromion and the clavicle appears normal. Mild soft tissue swelling. XR/XR shoulder RT min 2V IMPRESSION: Fracture right humeral neck with minimal displacement. There is no shoulder dislocation. Electronically signed by: Can Turner MD 05/11/2024 04:[address] [facility] Discharge Plan Discharge Clinical Impression: Fracture of neck of humerus Patient Disposition: Home, Self-Care Instructions: Arm Fracture in Adults (ED) Additional Instructions: As we discussed, you were seen today after a fall. Your XR shows a mildly displaced right humeral neck fracture. You will need to call orthopedics at the number provided to schedule your follow up within 1 week. For pain you can take tylenol 1g every 6 hours, ibuprofen 400mg every 6 hours, and then for break through pain oxycodone 5mg every 6 hours. Continue to wear the sling and swathe until seen by orthopedics. Prescriptions: New acetaminophen 500 mg tablet 1,000 mg PO Q6H PRN (Reason: pain) 7 Days Qty: 30 0RF ibuprofen 400 mg tablet 400 mg PO Q6H PRN (Reason: pain) 7 Days Qty: 30 0RF oxycodone 5 mg capsule 5 mg PO Q6H PRN (Reason: pain) 7 Days Qty: 12 0RF Rx Instructions: Partial Fill upon patient request. No Action cyclobenzaprine 10 mg tablet 10 mg PO TID PRN (Reason: muscle spasm) Qty: 10 0RF oxycodone-acetaminophen [Percocet] 5-325 mg tablet 1 tab PO Q6H PRN (Reason: pain) Qty: 10 0RF lidocaine [Lidoderm] 5 % adhesive patch,medicated 1 patch topical DAILY Qty: 15 0RF Rx Instructions: leave on most painful area for up to 12 hrs. May be substituted naproxen 500 mg tablet 500 mg PO BID PRN (Reason: pain) Qty: 10 0RF acetaminophen [Tylenol Extra Strength] 500 mg tablet 500 mg PO Q6H PRN (Reason: fever or pain) Qty: 14 0RF lidocaine [Lidoderm] 5 % adhesive patch,medicated 1 patch topical DAILY MDD remove after 12 hours PRN (Reason: pain) Qty: 30 0RF Rx Instructions: leave on most painful area for up to 12 hrs naproxen 500 mg tablet 500 mg PO BID PRN (Reason: pain) 10 Days Qty: 20 0RF cyclobenzaprine 5 mg tablet 5 mg PO Q8H PRN (Reason: pain (scale score 7-10)) 5 Days Qty: 14 0RF jddzzvqvofxxe-SC-twlarfqmljx 5-10-100 mg/5 mL liquid 10 ml PO Q4H PRN (Reason: cough) Qty: 473 0RF Referrals: Carlos Chong MD [Physician] - 1 week Print Language: Bangladeshi
[2024-05-11] MEDS: oxyCODONE HCl Immed Release 5 MG TABLET PO (16:45)
[2024-05-11] MEDS: Acetaminophen 325 MG TABLET 975 MG PO (16:45)
[2024-05-11] MEDS: Ketorolac Tromethamine 30 MG/ML VIAL IM (16:45)
[2024-05-11 17:26] VITALS: BP 149/88; PULSE 94; RESP 20; TEMP 37.1; O2SAT 99
== END 2024-05-11 17:27 | disposition home or self-care (01) ==
PROVIDERS: Emergency Provider Emergency Medicine; PCP Nurse Practitioner Family
DX: S42.211A Unspecified displaced fracture of surgical neck of right humerus, initial encounter for closed fracture (principal); M25.511 Pain in right shoulder; W00.0XXA Fall on same level due to ice and snow, initial encounter; Y93.89 Activity, other specified; Y92.89 Other specified places as the place of occurrence of the external cause; Y99.8 Other external cause status
CPT/HCPCS: 73030; 96372; 99284; J1885

== ENCOUNTER → 2024-05-11 16:07 | Outpatient (BNV) | payer MEDICARE, MEDICAID, SELFPAY | PROVIDERS: Emergency Provider Emergency Medicine; PCP Nurse Practitioner Family; Visit Provider Radiology Diagnostic Radiology | DX: S42.211A Unspecified displaced fracture of surgical neck of right humerus, initial encounter for closed fracture (principal) | CPT/HCPCS: 73030 ==

== ENCOUNTER 2024-05-17 14:29 | Emergency (ER) | payer MEDICARE, MEDICAID, SELFPAY ==
[2024-05-17 15:31] VITALS: BP 156/80; PULSE 74; RESP 18; TEMP 36.3; O2SAT 98; BMI 25.8
--- NOTE | 2024-05-17 15:35 | ED.GENADULT ---
HPI - General Adult General Chief complaint: General Medical Stated complaint: r shoulder inj Source: patient, RN notes reviewed and old records reviewed Mode of arrival: ambulatory Limitations: no limitations History of Present Illness ED Provider: Dennys HPI narrative: 43-year-old female presents for evaluation of right shoulder and arm pain. Patient was seen here on 05/11/2024 after slipping on ice. She had a minimally displaced fracture of the right humeral neck. She reports that she follows up with Orthopedics this coming Friday. She reports that she has been using the ibuprofen, Tylenol and oxycodone that was prescribed. She was out of oxycodone and Tylenol but still has some ibuprofen left. She was requesting more pain medication Related Data Previous Rx's ?Medication ?Instructions ?Recorded cyclobenzaprine 10 mg tablet 10 mg PO TID PRN muscle spasm #10 05/15/20 tabs lidocaine 5 % topical patch 1 patch topical DAILY pain #15 ea 05/15/20 (Lidoderm) naproxen 500 mg tablet 500 mg PO BID PRN pain #10 tabs 05/15/20 oxycodone-acetaminophen 5 mg-325 1 tab PO Q6H PRN pain #10 tabs 05/15/20 mg tablet (Percocet) acetaminophen 500 mg tablet 500 mg PO Q6H PRN fever or pain 09/18/21 (Tylenol Extra Strength) #14 tabs cyclobenzaprine 5 mg tablet 5 mg PO Q8H PRN pain (scale score 09/18/21 7-10) 5 days #14 tabs lidocaine 5 % topical patch 1 patch topical DAILY PRN pain #30 09/18/21 (Lidoderm) ea naproxen 500 mg tablet 500 mg PO BID PRN pain 10 days #20 09/18/21 tabs uazwglwoujxfx-NZ-zhglrvyctmu 5 10 ml PO Q4H PRN cough #473 mL 01/24/24 mg-10 mg-100 mg/5 mL oral liquid acetaminophen 500 mg tablet 1,000 mg (2 x 500 mg) PO Q6H PRN 05/11/24 pain 7 days #30 tabs ibuprofen 400 mg tablet 400 mg PO Q6H PRN pain 7 days #30 05/11/24 tabs oxycodone 5 mg tablet 5 mg PO Q6H PRN pain #20 tabs 05/11/24 acetaminophen 325 mg tablet 650 mg (2 x 325 mg) PO Q6H PRN 05/17/24 pain #60 tabs oxycodone 5 mg tablet 5 mg PO Q6H PRN severe pain (scale 05/17/24 score 7-10) #12 tabs Allergies Allergy/AdvReac Type Severity Reaction Status Date / Time amoxicillin Allergy Unknown Unknown Verified 05/17/24 15:35 penicillin V Allergy Unknown Hives Verified 05/17/24 15:35 Penicillins [PENICILLINS] Allergy Unknown UNKNOWN Verified 05/17/24 15:35 mold Allergy Unknown Hives Uncoded 05/17/24 15:35 Review of Systems Musculoskeletal: Musculoskeletal: Reports arthralgias, Reports joint swelling and Reports limited range of motion PMFSH Past Medical History Medical History HTN (hypertension) Social History Social History Alcohol intake: unknown Substance Use Type: Marijuana Physical Exam ED Const General: healthy appearing, comfortable, no acute distress, alert and awake Nutritional Appearance: well nourished Orientation/consciousness: patient oriented x3 HENMT Head: Yes normocephalic and Yes atraumatic Eyes Eyelids: Yes eyelids normal Conjunctivae: conjunctivae normal Sclerae: sclerae normal Corneas: corneas normal Pupils: Equal, round and reactive pupils present EOM: EOMs intact bilaterally Neck Neck: Yes full ROM Resp Effort & Inspection: normal respiratory effort, able to speak in complete sentences and not labored Skin General skin exam: elasticity normal Neuro General: patient oriented x3 Cranial nerves: Yes Equal, round and reactive pupils present and Yes Bilaterally intact EOM present Cognition (Neuro): normal cognition Extrem Other: Right upper extremities and a sling. Radial pulses 2+ and equal. The patient is able to wiggle all fingers in the right hand. Distal sensation and capillary refill intact Medical Decision Making Medical Decision Making MDM Narrative: 43-year-old female presents for evaluation of continued right shoulder pain. She has had no further injury and was diagnosed with a proximal humeral neck fracture last week. The patient follows up with Orthopedics on Friday. I discussed with the patient the oxycodone is not a long-term pain management plan but rather for short-term acute pain. I did agree to give her a few more days of oxycodone and I refilled her Tylenol however the patient has been taking 4 g of Tylenol daily, I cut her dose back to 650 mg 4 times a day instead of 1000 mg 4 times a day. Differential Diagnosis Differential Diagnoses: The differential diagnosis associated with the presentation includes Proximal humerus fracture Chronic pain Shoulder sprain Contusion Discharge Plan Discharge Clinical Impression: Fracture, humerus closed Patient Disposition: Home, Self-Care Instructions: Arm Fracture in Adults (ED) Additional Instructions: Follow up with Orthopedics at the number provided Continue to use ice as needed for pain. You may use ibuprofen and Tylenol for pain. You may use oxycodone for more severe breakthrough pain This may make you drowsy, do not drink alcohol or drive after taking it Prescriptions: New acetaminophen 325 mg tablet 650 mg PO Q6H PRN (Reason: pain) Qty: 60 0RF oxycodone 5 mg tablet 5 mg PO Q6H PRN (Reason: severe pain (scale score 7-10)) Qty: 12 0RF Rx Instructions: Partial Fill upon patient request. No Action cyclobenzaprine 10 mg tablet 10 mg PO TID PRN (Reason: muscle spasm) Qty: 10 0RF oxycodone-acetaminophen [Percocet] 5-325 mg tablet 1 tab PO Q6H PRN (Reason: pain) Qty: 10 0RF lidocaine [Lidoderm] 5 % adhesive patch,medicated 1 patch topical DAILY Qty: 15 0RF Rx Instructions: leave on most painful area for up to 12 hrs. May be substituted naproxen 500 mg tablet 500 mg PO BID PRN (Reason: pain) Qty: 10 0RF acetaminophen [Tylenol Extra Strength] 500 mg tablet 500 mg PO Q6H PRN (Reason: fever or pain) Qty: 14 0RF lidocaine [Lidoderm] 5 % adhesive patch,medicated 1 patch topical DAILY MDD remove after 12 hours PRN (Reason: pain) Qty: 30 0RF Rx Instructions: leave on most painful area for up to 12 hrs naproxen 500 mg tablet 500 mg PO BID PRN (Reason: pain) 10 Days Qty: 20 0RF cyclobenzaprine 5 mg tablet 5 mg PO Q8H PRN (Reason: pain (scale score 7-10)) 5 Days Qty: 14 0RF whqzfhhmurkfo-HD-yklmlcyxdlg 5-10-100 mg/5 mL liquid 10 ml PO Q4H PRN (Reason: cough) Qty: 473 0RF acetaminophen 500 mg tablet 1,000 mg PO Q6H PRN (Reason: pain) 7 Days Qty: 30 0RF ibuprofen 400 mg tablet 400 mg PO Q6H PRN (Reason: pain) 7 Days Qty: 30 0RF oxycodone 5 mg tablet 5 mg PO Q6H PRN (Reason: pain) Qty: 20 0RF Rx Instructions: Partial Fill upon patient request. Print Language: Persian
[2024-05-17 15:53] VITALS: BP 156/80; PULSE 74; RESP 18; TEMP 36.3; O2SAT 98
== END 2024-05-17 15:53 | disposition home or self-care (01) ==
PROVIDERS: Emergency Provider Emergency Medicine; PCP Nurse Practitioner Family
DX: M79.601 Pain in right arm (principal); S42.291D Other displaced fracture of upper end of right humerus, subsequent encounter for fracture with routine healing; X58.XXXD Exposure to other specified factors, subsequent encounter
CPT/HCPCS: 99282; 99284

== ENCOUNTER 2024-05-21 08:55 | Outpatient (REF) | payer MEDICARE, MEDICAID, SELFPAY ==
--- NOTE | ~2024-05-21 | XR_ITS ---
EXAMINATION: XR SHOULDER 2 OR MORE VIEWS RIGHT HISTORY: M25.511 - Pain in right shoulder COMPARISON: Comparison is made with the prior examination dated 05/11/2024. FINDINGS: Two views of the right shoulder are submitted. Osseous mineralization is normal. The previously seen fracture of the surgical neck of the humerus is not well visualized due to patient positioning. There is no dislocation. The glenohumeral joint is not well visualized. The AC joint is maintained. The soft tissues are unremarkable. XR/XR shoulder RT min 2V IMPRESSION: Limited examination due to difficulty in patient positioning. The previously seen left humeral neck fracture is not well visualized. Electronically signed by: Liu Farnsworth MD 05/21/2024 02:42 PM EST
== END 2024-05-21 08:56 | disposition home or self-care (01) ==
LOC: HO.HOSX 08:55
PROVIDERS: Visit Provider Physician Assistant
DX: S42.201A Unspecified fracture of upper end of right humerus, initial encounter for closed fracture (principal)
CPT/HCPCS: 73030; 99202

== ENCOUNTER 2024-05-21 13:13 | Outpatient (AMB) | payer MEDICARE, MEDICAID, SELFPAY ==
--- NOTE | 2024-05-21 13:20 | MHC.OFFVIS ---
Vital Signs 05/21/24 13:29 Height 5 ft 6 in Weight 160 lb BMI 25.8 Intake Visit Reasons: FC-right humeral neck fracture, DOI 05/11/24 Intake Note: Gilda 43 yr old female presents today as a new patient for a right humeral neck fracture from 05/11/24. States she slip and fell on ice. Seen in ED same day where xrays were taken and was told she has a fracture. She was given a sling that she continues to use as directed. The patient states she slipped and landed directly on her right shoulder. Currently states she continues to have pain. She is having numbness and tingling that she didnt have before. She is also having pain in her right wrist. Allergies amoxicillin Allergy (Unknown, Verified 05/21/24 13:27) Unknown penicillin V Allergy (Unknown, Verified 05/21/24 13:27) Hives Penicillins [PENICILLINS] Allergy (Unknown, Verified 05/21/24 13:27) UNKNOWN mold Allergy (Unknown, Uncoded 05/21/24 13:27) Hives Medication List - Last Reconciled 05/21/24 by Christiano Gomez PA-C acetaminophen (Tylenol Extra Strength) 500 mg PO Q6H PRN acetaminophen 1,000 mg (2 x 500 mg) PO Q6H PRN 7 days acetaminophen 650 mg (2 x 325 mg) PO Q6H PRN cyclobenzaprine 10 mg PO TID PRN ibuprofen 400 mg PO Q6H PRN 7 days oxycodone 5 mg PO Q6H PRN oxycodone 5 mg PO Q6H PRN HPI HPI FC-right humeral neck fracture, DOI 05/11/24: Details: 43-year-old female presents to the office today for an injury she sustained to her right shoulder on 05/11/2024. She was walking outside when she slipped and fell on ice landing on the right side. She was seen in the emergency department where x-rays were obtained which showed a right proximal humerus fracture. She was placed in a sling and referred to our office for ortho eval. PFS Medical History (Updated 05/21/24 @ 13:36 by Christiano Gomez PA-C) HTN (hypertension) Surgical History (Updated 05/21/24 @ 13:29 by EVE Nunes) H/O: hysterectomy Social History (Updated 05/21/24 @ 13:29 by EVE Nunes) Alcohol intake: unknown Substance Use Type: Marijuana Current occupational status: disabled Current occupation: rt hand Review of Systems Const All systems reviewed & are unremarkable except as noted in HPI and below Physical Exam Vital Signs: BMI result Body Mass Index 25.8 Const General: cooperative and no acute distress Orientation/consciousness: patient oriented x3 Resp Effort & Inspection: normal respiratory effort and able to speak in complete sentences Cardio Peripheral pulses: Peripheral pulses 2+ throughout Neuro General: patient oriented x3 Extrem Other: Right shoulder normal to inspection. Swelling and tenderness over the proximal humerus. Anterior deltoid sensation intact. Elbow and wrist ROM intact. NVI. Office Procedures AMB Fracture Care Fracture Billing Code: Fracture Billing Code Results Reviewed Results Reviewed: X-rays of the right shoulder obtained in the office today show a proximal humerus fracture with stable fracture pattern when compared previous exam Assessment & Plan Assessment & Plan (1) Closed fracture of right proximal humerus: Code(s): S42.201A - Unspecified fracture of upper end of right humerus, initial encounter for closed fracture Category: Medical Plan: She will continue with the sling for comfort for the next 4 weeks she can remove the sling for exercises to allow the arm to hang at her side and perform elbow and wrist range of motion. I did place an order for physical therapy to work on range of motion and periscapular stabilization. No lifting overhead pushing pulling or carrying with the right arm for the next 6 weeks. At that time I will see her back with new x-rays. Orders: Orders PT Evaluation and Treatment Today S42.201A - Unspecified fracture of upper end of right humerus, initial encounter for closed fracture XR shoulder RT min 2V Today M25.511 - Pain in right shoulder Medications: Discontinued lidocaine 5% (Lidoderm) leave on most painful area for up to 12 hrs. May be substituted Discontinued Reason: Patient Completed Course 1 patch topical DAILY 15 ea 0RF pain naproxen Discontinued Reason: Patient Completed Course 500 mg PO BID PRN 10 tabs 0RF pain oxycodone-acetaminophen 5-325 mg (Percocet) Discontinued Reason: Patient Completed Course 1 tab PO Q6H PRN 10 tabs 0RF pain lidocaine 5% (Lidoderm) leave on most painful area for up to 12 hrs Discontinued Reason: Patient Completed Course 1 patch topical DAILY PRN 30 ea 0RF pain MDD remove after 12 hours naproxen Discontinued Reason: Patient Completed Course 500 mg PO BID 10 days PRN 20 tabs 0RF pain cyclobenzaprine Discontinued Reason: No Longer Medically Relevant 5 mg PO Q8H 5 days PRN 14 tabs 0RF pain (scale score 7-10) [id number] 5-10-100 mg/5 mL Discontinued Reason: Patient Completed Course 10 mL PO Q4H PRN 473 mL 0RF cough Coding Level of Care Code New Pt Level 3 (68479) Complex EM visit Add On G2211 Diagnoses Closed fracture of right proximal humerus S42.201A CPT Codes Fracture Care - Fracture Billing Code: Fracture Billing Code ([id number])
[2024-05-21 13:29] VITALS: BMI 25.8
== END 2024-05-21 13:49 | disposition home or self-care (01) ==
PROVIDERS: PCP Nurse Practitioner Family; Visit Provider Physician Assistant
DX: S42.201A Unspecified fracture of upper end of right humerus, initial encounter for closed fracture (principal); W00.0XXA Fall on same level due to ice and snow, initial encounter
CPT/HCPCS: 99203; G2211

== ENCOUNTER → 2024-05-21 13:16 | Outpatient (BNV) | payer MEDICARE, MEDICAID, SELFPAY | PROVIDERS: Visit Provider Radiology Diagnostic Radiology | DX: S42.241A 4-part fracture of surgical neck of right humerus, initial encounter for closed fracture (principal) | CPT/HCPCS: 73030 ==

== ENCOUNTER 2024-06-09 13:36 | Outpatient (RCR) | payer MEDICARE, SELFPAY | END 2024-09-08 10:32 | disposition home or self-care (01) | LOC: HO.PT 13:36 | PROVIDERS: PCP Nurse Practitioner Family; Visit Provider Physician Assistant | DX: S42.201D Unspecified fracture of upper end of right humerus, subsequent encounter for fracture with routine healing (principal) ==

== ENCOUNTER 2024-06-30 07:14 | Outpatient (REF) | payer MEDICARE, MEDICAID, SELFPAY | END 2024-06-30 07:15 | disposition home or self-care (01) | LOC: HO.HOSX 07:14 | PROVIDERS: Visit Provider Physician Assistant | DX: Z13.89 Encounter for screening for other disorder (principal) ==

== ENCOUNTER 2024-07-02 08:29 | Outpatient (REF) | payer MEDICARE, MEDICAID, SELFPAY | END 2024-07-02 08:30 | disposition home or self-care (01) | LOC: HO.HOSX 08:29 | PROVIDERS: Visit Provider Physician Assistant | DX: Z13.89 Encounter for screening for other disorder (principal) ==